=== PATIENT | female | born 1970 | race Caucasian/White ===

== ENCOUNTER 2018-04-08 18:01 | Emergency (ER) | payer MEDICAID ==
[~2018-04-08 18:01] MED LIST: ALBU18HF2 IH; ALBU8HFA PO; NITR100C6 PO
== END 2018-04-08 19:09 | disposition left against medical advice (07) ==
LOC: ER 18:01
DX: L02.91 Cutaneous abscess, unspecified (principal); Z53.21 Procedure and treatment not carried out due to patient leaving prior to being seen by health care provider

== ENCOUNTER 2018-04-08 20:09 | Emergency (ER) | payer MEDICAID ==
[~2018-04-08] VITALS: Ht 157.5 cm; Wt 47.8 kg
[2018-04-08 20:38] VITALS: BP 147/98
--- NOTE | 2018-04-08 20:40 | NUR ---
Pt reports possible placement in rehab facility r/t meth use as a result of an ultimatum from her . Pt is anxious.
--- NOTE | 2018-04-08 22:32 | NUR ---
PATIENT STANDING AT EDGE OF ROOM ASKING TO TALK TO SOMEBODY. I ASKED HER WHAT SHE WANTED HELP WITH AND SHE STATED THAT SHE "IS LEAVING AND IS THERE SOMETHING FOR ME TO SIGN" I TOLD HER THAT THERE WAS AND I WILL GET AN AMA FORM. I TOLD DR WALL WHO ACCOMPANIED ME INTO THE ROOM AND PATIENT BENT OVER AND PULLED HER PANTS DOWN EXPOSING A REDDENED AREA ON HER BUTTOCK. DR ASKED HER TO GET INTO BED AND ROLL AND FACE THE WALL TO EXAMINE HER ABCESS. THE PATIENT REFUSED. DR WALL LEFT THE ROOM THE PATIENT REFUSED TO BE APPROPRIATELY EXAMINED. THE PATIENT THEN REFUSED TO HAVE HER ABCESS DRAINED. SHE DID EXPLAIN THAT WHEN SHE WENT TO THE BATHROOM "STUFF BIG MY PINKIE FINGER CAME OUT"
[2018-04-08] MEDS ORDERED: LIDOcaine 1.5% w/epinephrine 1:200,000 5ml ampul IJ ONE (22:35)
[2018-04-08] MEDS ORDERED: sulfamethoxazole/trimethoprim DS (800/160mg) tablet PO ONE (22:35)
[2018-04-08] MEDS ORDERED: LIDOcaine 1% w/epiNEPHrine 1:200,000 30ml vial IJ ONE (22:55)
== END 2018-04-08 22:39 | disposition left against medical advice (07) ==
LOC: ER 20:10
DX: L02.31 Cutaneous abscess of buttock (principal); J45.909 Unspecified asthma, uncomplicated; F12.90 Cannabis use, unspecified, uncomplicated; F15.90 Other stimulant use, unspecified, uncomplicated; F17.200 Nicotine dependence, unspecified, uncomplicated; Z56.0 Unemployment, unspecified; Z88.0 Allergy status to penicillin; Z88.5 Allergy status to narcotic agent; Z88.8 Allergy status to other drugs, medicaments and biological substances; Z79.899 Other long term (current) drug therapy
CPT/HCPCS: 99281; J3490

== ENCOUNTER 2019-03-22 04:35 | Emergency (ER) | payer MEDICAID ==
[~2019-03-22] VITALS: Ht 157.5 cm; Wt 48.0 kg
[2019-03-22] MEDS ORDERED: ibuprofen tablet 400 MG TABLET PO ONE (05:05)
[2019-03-22] MEDS ORDERED: IBUP-1984 PO (05:06)
[2019-03-22] MEDS ORDERED: CLIN-90 PO (05:06)
[2019-03-22 05:16] VITALS: BP 138/69
== END 2019-03-22 05:19 | disposition home or self-care (01) ==
LOC: ER 04:35
DX: S09.90XA Unspecified injury of head, initial encounter (principal); K02.9 Dental caries, unspecified; R11.2 Nausea with vomiting, unspecified; J45.909 Unspecified asthma, uncomplicated; F17.200 Nicotine dependence, unspecified, uncomplicated; F10.99 Alcohol use, unspecified with unspecified alcohol-induced disorder; F12.90 Cannabis use, unspecified, uncomplicated; F15.90 Other stimulant use, unspecified, uncomplicated; Z56.0 Unemployment, unspecified; Z88.0 Allergy status to penicillin; Z88.5 Allergy status to narcotic agent; Z88.7 Allergy status to serum and vaccine; Z79.899 Other long term (current) drug therapy; Y08.89XA Assault by other specified means, initial encounter; Y93.89 Activity, other specified; Y92.89 Other specified places as the place of occurrence of the external cause; Y99.8 Other external cause status; Y90.9 Presence of alcohol in blood, level not specified
CPT/HCPCS: 99283

== ENCOUNTER 2023-04-17 18:02 | Emergency (ER) | payer MEDICAID ==
[~2023-04-17] VITALS: Ht 157.5 cm; Wt 49.1 kg
[~2023-04-17 18:02] MED LIST changes: +CLIN-97 PO
[2023-04-17 19:13] VITALS: BP 118/70; PULSE 90; RESP 20; TEMP 97.8; O2SAT 99
== END 2023-04-17 19:15 | disposition home or self-care (01) ==
LOC: ER 18:02
DX: R05.9 Cough, unspecified (principal); J45.909 Unspecified asthma, uncomplicated; F12.90 Cannabis use, unspecified, uncomplicated; F15.90 Other stimulant use, unspecified, uncomplicated; Z88.0 Allergy status to penicillin; Z88.5 Allergy status to narcotic agent; Z88.1 Allergy status to other antibiotic agents
CPT/HCPCS: 71045; 99283

== ENCOUNTER 2023-12-17 08:37 | Emergency (ER) | payer MEDICAID ==
[~2023-12-17] VITALS: Ht 157.5 cm; Wt 46.4 kg
[2023-12-17 09:34] LABS: BILIRUBIN,URINE NEGATIVE (Neg); CLARITY,URINE SLIGHTLY CLOUDY (Clear); COLOR,URINE YELLOW (Yellow); GLUCOSE, URINE NEGATIVE (Neg); KETONES,URINE NEGATIVE (Neg); LEUKOCYTE ESTERASE ,URINE NEGATIVE (Neg); NITRITES, URINE NEGATIVE (Neg); OCCULT BLOOD,URINE MODERATE (Neg); PROTEIN,URINE TRACE mg/dl (Neg); UROBILINOGEN,URINE 0.2 E.U/dL (0.2-1.0)
[2023-12-17] MEDS: ipratropium/albuterol 3ml nebule NEB STA (09:36)
[2023-12-17 09:37] VITALS: PULSE 86; RESP 16; O2SAT 96
[2023-12-17 09:37] LABS: UA COLLECTION TYPE CLN CATCH MIDSTREAM
[2023-12-17 09:40] LABS: SQUAMOUS EPITHELIAL CELL,UR MANY /LPF (FEW)
[2023-12-17 09:41] LABS: RBC,URINE 20-50 /HPF (0-2)
[2023-12-17 09:42] LABS: BACTERIA,URINE FEW /HPF (Neg)
[2023-12-17 09:44] VITALS: PULSE 84; RESP 16; O2SAT 96
[2023-12-17 09:50] LABS: ALBUMIN 2.3 G/DL (3.4-5.0); ALBUMIN/GLOBULIN RATIO 0.4 (1.1-1.5); ALKALINE PHOSPHATASE 103 IU/L (46-116); ANION GAP 8 (8-16); ASPARTATE AMINO TRANSFERASE 8 U/L (10-37); BILIRUBIN,TOTAL 0.5 MG/DL (0.1-1.0); BLOOD UREA NITROGEN 11 MG/DL (7-18); BUN/CREATININE RATIO 16.4 (10.0-20.0); CHLORIDE 102 MMOL/L (99-107); CREATININE 0.67 MG/DL (0.40-0.90); GLUCOSE 91 MG/DL (70-104); POTASSIUM 3.6 MMOL/L (3.5-5.1); SODIUM 136 MMOL/L (135-145); TOTAL CARBON DIOXIDE 26.2 MMOL/L (24-32); eCRCL 72 ML/MIN; eGFR > 90 ML/MIN
[2023-12-17 09:51] LABS: ALANINE AMINOTRANSFERASE < 6 U/L (12-78)
[2023-12-17 10:00] LABS: BASOPHILS # (AUTO) 0.1 X10'3 (0-0.2); EOSINOPHILS % (AUTO) 0.2 % (0-6); HEMOGLOBIN 11.5 g/dl (12.0-16.0); LYMPHOCYTES # (AUTO) 1.3 X10'3 (1.1-4.8)
[2023-12-17 10:02] LABS: BASOPHILS % (AUTO) 0.5 % (0-1); HEMATOCRIT 35.6 % (35.0-45.0); LYMPHOCYTES % (AUTO) 7.5 % (21-51); MEAN CORPUSCULAR HEMOGLOBIN 29.1 PG (27.0-31.0); MEAN CORPUSCULAR HGB CONC 32.4 g/dL (33.0-36.5); MEAN CORPUSCULAR VOLUME 89.9 FL (78-98); MEAN PLATELET VOLUME 7.8 FL (7.4-10.4); MONOCYTES # (AUTO) 1.2 X10'3 (0-0.9); NEUTROPHILS # (AUTO) 14.3 X10'3 (1.8-7.7); NEUTROPHILS % (AUTO) 84.8 % (42-75); PLATELET COUNT 766 X10'3 (140-440); RED BLOOD COUNT 3.96 X10'6 (4.20-5.60); RED CELL DISTRIBUTION WIDTH 15.3 % (11.5-14.5); WHITE BLOOD COUNT 16.9 X10'3 (4.5-11.0)
[2023-12-17 10:34] VITALS: BP 112/70; PULSE 82; RESP 16; TEMP 99.9; O2SAT 92
[2023-12-17] MEDS ORDERED: AZIT250T81 PO (15:52)
[2023-12-17] MEDS ORDERED: AZIT-164 PO (15:52)
== END 2023-12-17 11:37 | disposition left against medical advice (07) ==
LOC: ER 08:37
DX: J18.9 Pneumonia, unspecified organism (principal); F12.90 Cannabis use, unspecified, uncomplicated; F17.200 Nicotine dependence, unspecified, uncomplicated; J44.0 Chronic obstructive pulmonary disease with (acute) lower respiratory infection; Z88.0 Allergy status to penicillin; Z88.1 Allergy status to other antibiotic agents; Z88.5 Allergy status to narcotic agent; Z88.7 Allergy status to serum and vaccine; Z20.822 Contact with and (suspected) exposure to COVID-19
CPT/HCPCS: 71045; 80053; 81001; 85025; 87811; 94640; 94760; 99284

== ENCOUNTER 2023-12-18 06:38 | Emergency (ER) | payer MEDICAID ==
[~2023-12-18] VITALS: Ht 157.5 cm; Wt 46.4 kg
[~2023-12-18 06:38] MED LIST changes: +AZIT-164 PO; +AZIT250T81 PO
[2023-12-18 06:43] VITALS: BP 127/73; PULSE 106; RESP 18; TEMP 99; O2SAT 95
== END 2023-12-18 09:57 | disposition left against medical advice (07) ==
LOC: ER 06:38
DX: R10.11 Right upper quadrant pain (principal); R11.2 Nausea with vomiting, unspecified; Z53.21 Procedure and treatment not carried out due to patient leaving prior to being seen by health care provider

== ENCOUNTER 2024-01-01 17:17 | Emergency (ER) | payer MEDICAID ==
[~2024-01-01] VITALS: Ht 157.5 cm; Wt 46.4 kg
[~2024-01-01 17:17] MED LIST changes: -AZIT250T81 PO
[2024-01-01 17:30] VITALS: BP 135/85; PULSE 83; RESP 18; TEMP 98.1; O2SAT 93
== END 2024-01-01 18:10 | disposition left against medical advice (07) ==
LOC: ER 17:18
DX: J18.9 Pneumonia, unspecified organism (principal); J45.909 Unspecified asthma, uncomplicated; F17.210 Nicotine dependence, cigarettes, uncomplicated; F12.90 Cannabis use, unspecified, uncomplicated; F15.90 Other stimulant use, unspecified, uncomplicated; Z88.0 Allergy status to penicillin; Z88.5 Allergy status to narcotic agent; Z79.2 Long term (current) use of antibiotics; Z79.899 Other long term (current) drug therapy; Z88.1 Allergy status to other antibiotic agents

== ENCOUNTER 2024-04-17 07:12 | Inpatient (IN) | payer MEDICAID ==
[~2024-04-17] VITALS: Ht 157.5 cm; Wt 50.5 kg
[~2024-04-17 07:12] MED LIST changes: -AZIT-164 PO
[2024-04-17 07:55] LABS: BILIRUBIN,URINE NEGATIVE (Neg); CLARITY,URINE CLEAR (Clear); COLOR,URINE YELLOW (Yellow); GLUCOSE, URINE NEGATIVE (Neg); KETONES,URINE NEGATIVE (Neg); LEUKOCYTE ESTERASE ,URINE NEGATIVE (Neg); NITRITES, URINE NEGATIVE (Neg); OCCULT BLOOD,URINE MODERATE (Neg); PROTEIN,URINE 30 mg/dl (Neg); URINE AMPHETAMINE SCREEN NEGATIVE (Neg); URINE BARBITUATE SCREEN NEGATIVE (Neg); URINE BENZODIAZEPINES SCREEN NEGATIVE (Neg); URINE CANNABINOID SCREEN NEGATIVE (Neg); URINE COCAINE SCREEN NEGATIVE (Neg); URINE METHADONE SCREEN NEGATIVE (Neg); URINE OPIATE SCREEN NEGATIVE (Neg); URINE PHENCYCLIDINE SCREEN NEGATIVE (Neg); UROBILINOGEN,URINE 0.2 E.U/dL (0.2-1.0)
[2024-04-17 08:03] LABS: BASOPHILS % (AUTO) 0.3 % (0-1); EOSINOPHILS # (AUTO) 0.2 X10'3 (0-0.9); EOSINOPHILS % (AUTO) 1.4 % (0-6); HEMATOCRIT 36.2 % (35.0-45.0); LYMPHOCYTES # (AUTO) 0.8 X10'3 (1.1-4.8); LYMPHOCYTES % (AUTO) 7.3 % (21-51); MEAN CORPUSCULAR HEMOGLOBIN 30.3 PG (27.0-31.0); MEAN CORPUSCULAR HGB CONC 33.2 g/dL (33.0-36.5); MEAN CORPUSCULAR VOLUME 91.1 FL (78-98); MEAN PLATELET VOLUME 8.4 FL (7.4-10.4); MONOCYTES # (AUTO) 0.9 X10'3 (0-0.9); MONOCYTES % (AUTO) 7.5 % (2-12); NEUTROPHILS # (AUTO) 9.6 X10'3 (1.8-7.7); NEUTROPHILS % (AUTO) 83.5 % (42-75); PLATELET COUNT 525 X10'3 (140-440); RED BLOOD COUNT 3.98 X10'6 (4.20-5.60); RED CELL DISTRIBUTION WIDTH 13.9 % (11.5-14.5); WHITE BLOOD COUNT 11.5 X10'3 (4.5-11.0)
[2024-04-17 08:05] LABS: ALANINE AMINOTRANSFERASE 19 U/L (12-78); ALBUMIN/GLOBULIN RATIO 0.6 (1.1-1.5); ALKALINE PHOSPHATASE 83 IU/L (46-116); ANION GAP 7 (8-16); ASPARTATE AMINO TRANSFERASE 20 U/L (10-37); BILIRUBIN,TOTAL 0.2 MG/DL (0.1-1.0); BLOOD UREA NITROGEN 15 MG/DL (7-18); BUN/CREATININE RATIO 21.7 (10.0-20.0); CALCIUM 8.6 MG/DL (8.5-10.1); CHLORIDE 103 MMOL/L (99-107); CREATININE 0.69 MG/DL (0.40-0.90); GLUCOSE 111 MG/DL (70-104); POTASSIUM 4.1 MMOL/L (3.5-5.1); SODIUM 139 MMOL/L (135-145); TOTAL CARBON DIOXIDE 28.8 MMOL/L (24-32); TOTAL PROTEIN 8.1 G/DL (6.4-8.2); eCRCL 75 ML/MIN; eGFR 89 ML/MIN
[2024-04-17] MEDS ORDERED: iohexol 300mg/ml 100ml inj. ONE (08:05)
[2024-04-17 08:07] LABS: UA COLLECTION TYPE CLN CATCH MIDSTREAM
[2024-04-17 08:09] LABS: BACTERIA,URINE FEW /HPF (Neg)
[2024-04-17 08:10] LABS: FINE GRANULAR CAST 0-3 /LPF (NEGATIVE); MUCUS STRANDS FEW /LPF (Neg); SQUAMOUS EPITHELIAL CELL,UR FEW /LPF (FEW); WBC CLUMPS,URINE FEW /HPF (NEGATIVE)
[2024-04-17] MEDS: diphenhydrAMINE 50 mg/ml inj IV ONE (09:03)
[2024-04-17] MEDS: nicotine 7mg patch - 24hr TD ONE (12:13)
[2024-04-17] MEDS ORDERED: IBUP-1985 PO (12:35)
[2024-04-17] MEDS ORDERED: ALBU18HF2 INH (12:38)
[2024-04-17] MEDS: PERFLUTREN PROTEIN-A MICROSPHR (Optison) 0.22 MG/ML 3ML VIAL IV ONE (13:20)
[2024-04-17] MEDS ORDERED: magnesium sulf-water 4G/100mL 100 ML IV PRN (13:25)
[2024-04-17] MEDS ORDERED: magnesium Cl slow-release 64mg tablet PO PRN (13:25)
[2024-04-17] MEDS ORDERED: ondansetron/PF 4mg/2ml inj IV PRN (13:25)
[2024-04-17] MEDS ORDERED: potassium Cl 20 mEq SR tablet PO PRN ×2 (13:25)
[2024-04-17] MEDS ORDERED: magnesium sulf-water 2g/50mL 50 ML IV PRN (13:25)
[2024-04-17] MEDS ORDERED: potassium Cl 40MEQ/1/2NS 520ml 520 ML IV PRN (13:25)
[2024-04-17 13:27] VITALS: RESP 18; O2SAT 97
[2024-04-17] MEDS: ringers solution, lacted 1,000 ML IV SCH (13:36)
[2024-04-17 14:06] LABS: HEMOGLOBIN A1C 5.7 % (4.5-6.2)
[2024-04-17] MEDS: ketorolac trometh 15mg/ml vial 15 MG/ML ML IV PRN (15:17)
[2024-04-17 18:00] VITALS: BP 100/61; PULSE 68; RESP 12; TEMP 98.4; O2SAT 95
[2024-04-17 18:57] VITALS: PULSE 71; RESP 18; O2SAT 93
[2024-04-17] MEDS: ipratropium/albuterol 3ml nebule NEB PRN (18:57)
[2024-04-17 19:03] VITALS: PULSE 77; RESP 18
[2024-04-17] MEDS: heparin, porcine 5000 units/ml vial SQ SCH (20:00)
[2024-04-17] MEDS: K and/or MAG REPLACEMENT MC SCH (20:00)
[2024-04-17] MEDS: nicotine 7mg patch - 24hr TD SCH (20:38)
[2024-04-17 22:00] VITALS: BP 95/48; PULSE 68; RESP 14; TEMP 98.4; O2SAT 95
[2024-04-18 05:58] LABS: BASOPHILS # (AUTO) 0.1 X10'3 (0-0.2); BASOPHILS % (AUTO) 0.9 % (0-1); EOSINOPHILS # (AUTO) 0.3 X10'3 (0-0.9); EOSINOPHILS % (AUTO) 4.2 % (0-6); HEMATOCRIT 34.3 % (35.0-45.0); HEMOGLOBIN 11.5 g/dl (12.0-16.0); LYMPHOCYTES # (AUTO) 2.2 X10'3 (1.1-4.8); MEAN CORPUSCULAR HEMOGLOBIN 30.4 PG (27.0-31.0); MEAN CORPUSCULAR HGB CONC 33.4 g/dL (33.0-36.5); MEAN CORPUSCULAR VOLUME 90.8 FL (78-98); MEAN PLATELET VOLUME 8.4 FL (7.4-10.4); MONOCYTES # (AUTO) 0.5 X10'3 (0-0.9); MONOCYTES % (AUTO) 7.7 % (2-12); NEUTROPHILS # (AUTO) 3.7 X10'3 (1.8-7.7); NEUTROPHILS % (AUTO) 54.2 % (42-75); PLATELET COUNT 427 X10'3 (140-440); RED BLOOD COUNT 3.78 X10'6 (4.20-5.60); WHITE BLOOD COUNT 6.8 X10'3 (4.5-11.0)
[2024-04-18 06:00] VITALS: BP 119/73; PULSE 69; RESP 13; TEMP 98.5; O2SAT 96
[2024-04-18 06:24] LABS: ALANINE AMINOTRANSFERASE 15 U/L (12-78); ALBUMIN 2.5 G/DL (3.4-5.0); ALBUMIN/GLOBULIN RATIO 0.5 (1.1-1.5); ALKALINE PHOSPHATASE 75 IU/L (46-116); ANION GAP 4 (8-16); ASPARTATE AMINO TRANSFERASE 14 U/L (10-37); BILIRUBIN,TOTAL 0.2 MG/DL (0.1-1.0); BLOOD UREA NITROGEN 17 MG/DL (7-18); BUN/CREATININE RATIO 26.2 (10.0-20.0); CALCIUM 8.6 MG/DL (8.5-10.1); CHLORIDE 104 MMOL/L (99-107); CHOL/HDL RATIO 3.6 (0.00-4.99); CHOLESTEROL 118 MG/DL (0-200); CREATININE 0.65 MG/DL (0.40-0.90); GLUCOSE 91 MG/DL (70-104); HDL CHOLESTEROL 33 MG/DL (35-60); LDL CHOLESTEROL 66 MG/DL (50-100); MAGNESIUM 2.3 MG/DL (1.5-2.4); PHOSPHORUS 3.8 MG/DL (2.3-4.5); POTASSIUM 4.4 MMOL/L (3.5-5.1); SODIUM 139 MMOL/L (135-145); TOTAL CARBON DIOXIDE 30.8 MMOL/L (24-32); TOTAL PROTEIN 7.2 G/DL (6.4-8.2); TRIGLYCERIDES 100 MG/DL (20-135); eCRCL 80 ML/MIN; eGFR > 90 ML/MIN
[2024-04-18] MEDS: nicotine 14mg patch - 24hr TD SCH (08:01)
[2024-04-18 10:00] VITALS: BP 115/57; PULSE 68; RESP 14; TEMP 97.9; O2SAT 92
[2024-04-18] MEDS: cefepime 1GM/NS ADD-VANTAGE 100 ML IV SCH (11:48)
[2024-04-18] MEDS: ketorolac trometh 15mg/ml vial 15 MG/ML ML IV SCH (17:10)
[2024-04-18 18:00] VITALS: BP 117/72; PULSE 71; RESP 18; TEMP 98.2; O2SAT 95
[2024-04-18] MEDS: guaiFENesin ER 600mg tablet PO SCH (20:41)
[2024-04-18 22:00] VITALS: BP 113/49; PULSE 65; RESP 12; TEMP 97.8; O2SAT 93
[2024-04-19 03:09] VITALS: BP 117/72; PULSE 71; RESP 18; TEMP 98.2; O2SAT 95
[2024-04-19 05:58] LABS: BASOPHILS # (AUTO) 0.1 X10'3 (0-0.2); BASOPHILS % (AUTO) 1.1 % (0-1); EOSINOPHILS # (AUTO) 0.4 X10'3 (0-0.9); EOSINOPHILS % (AUTO) 4.7 % (0-6); HEMATOCRIT 34.7 % (35.0-45.0); HEMOGLOBIN 11.3 g/dl (12.0-16.0); LYMPHOCYTES # (AUTO) 1.9 X10'3 (1.1-4.8); LYMPHOCYTES % (AUTO) 20.8 % (21-51); MEAN CORPUSCULAR HEMOGLOBIN 29.7 PG (27.0-31.0); MEAN CORPUSCULAR HGB CONC 32.7 g/dL (33.0-36.5); MEAN CORPUSCULAR VOLUME 90.7 FL (78-98); MEAN PLATELET VOLUME 8.9 FL (7.4-10.4); MONOCYTES # (AUTO) 0.8 X10'3 (0-0.9); MONOCYTES % (AUTO) 8.6 % (2-12); NEUTROPHILS # (AUTO) 5.8 X10'3 (1.8-7.7); NEUTROPHILS % (AUTO) 64.8 % (42-75); PLATELET COUNT 499 X10'3 (140-440); RED BLOOD COUNT 3.82 X10'6 (4.20-5.60); RED CELL DISTRIBUTION WIDTH 13.8 % (11.5-14.5); WHITE BLOOD COUNT 8.9 X10'3 (4.5-11.0)
[2024-04-19 06:00] VITALS: BP 120/61; PULSE 60; RESP 14; TEMP 97.6
[2024-04-19] MEDS ORDERED: cefepime 1GM in D5W 50mL 100 ML IV SCH (06:11)
[2024-04-19 06:21] LABS: ALANINE AMINOTRANSFERASE 16 U/L (12-78); ALBUMIN 2.7 G/DL (3.4-5.0); ALBUMIN/GLOBULIN RATIO 0.6 (1.1-1.5); ALKALINE PHOSPHATASE 82 IU/L (46-116); ANION GAP 3 (8-16); ASPARTATE AMINO TRANSFERASE 12 U/L (10-37); BILIRUBIN,TOTAL 0.1 MG/DL (0.1-1.0); BLOOD UREA NITROGEN 16 MG/DL (7-18); BUN/CREATININE RATIO 24.2 (10.0-20.0); CALCIUM 9.9 MG/DL (8.5-10.1); CHLORIDE 104 MMOL/L (99-107); CREATININE 0.66 MG/DL (0.40-0.90); GLUCOSE 103 MG/DL (70-104); MAGNESIUM 1.9 MG/DL (1.5-2.4); PHOSPHORUS 4.6 MG/DL (2.3-4.5); POTASSIUM 4.9 MMOL/L (3.5-5.1); SODIUM 142 MMOL/L (135-145); TOTAL CARBON DIOXIDE 35.2 MMOL/L (24-32); TOTAL PROTEIN 7.2 G/DL (6.4-8.2); eCRCL 79 ML/MIN; eGFR > 90 ML/MIN
[2024-04-19 08:00] VITALS: RESP 18; O2SAT 95
[2024-04-19] MEDS: polyethylene glycol 3350 17gm powd pack PO SCH (08:48)
[2024-04-19] MEDS: cefepime 1GM in D5W 50mL 50 ML IV SCH (08:55)
[2024-04-19 10:00] VITALS: BP 108/63; PULSE 62; RESP 17; TEMP 98; O2SAT 93
[2024-04-19] MEDS ORDERED: AMOX-580 PO (13:53)
[2024-04-19] MEDS ORDERED: LACT1CAP26 PO (13:53)
[2024-04-20] MEDS ORDERED: pantoprazole 40mg Tablet.DR PO SCH (07:30)
== END 2024-04-19 14:35 | disposition home or self-care (01) | DRG 463 ==
LOC: ER 07:13 → ED HOLD 10:41 → SUR 3N 12:53
PROVIDERS: ADMIT Family Medicine; ATTEND Family Medicine
PROC: BW211ZZ Computerized Tomography (CT Scan) of Abdomen and Pelvis using Low Osmolar Contrast (ICD-10-PCS; principal; 2024-04-17)
DX: N12 Tubulo-interstitial nephritis, not specified as acute or chronic (principal); F19.10 Other psychoactive substance abuse, uncomplicated; J45.909 Unspecified asthma, uncomplicated; J44.9 Chronic obstructive pulmonary disease, unspecified; K82.8 Other specified diseases of gallbladder; Z88.0 Allergy status to penicillin; Z88.5 Allergy status to narcotic agent; Z88.8 Allergy status to other drugs, medicaments and biological substances; Z87.891 Personal history of nicotine dependence; Z91.041 Radiographic dye allergy status
CPT/HCPCS: 36415; 74178; 74181; 76700; 80053; 80061; 80305; 81001; 83036; 83605; 83735; 84100; 84145; 85025; 87081; 87088; 93306; 94640; 94760; 99285; G0378; J0692; J1200; J1644; J1885; J7120; Q9967

== ENCOUNTER 2025-01-25 08:56 | Emergency (ER) | payer MEDICAID ==
[~2025-01-25] VITALS: Ht 157.5 cm; Wt 45.6 kg
[~2025-01-25 08:56] MED LIST changes: -ALBU18HF2 IH; +ALBU18HF2 INH; -CLIN-97 PO; +IBUP600T52 PO; +LACT1CAP26 PO; -NITR100C6 PO
[2025-01-25 09:02] VITALS: PULSE 80; TEMP 97.1; O2SAT 96
[2025-01-25 09:38] LABS: URINE HCG NEGATIVE (NEG)
[2025-01-25 09:41] LABS: LEUKOCYTE ESTERASE ,URINE NEGATIVE (Neg); NITRITES, URINE NEGATIVE (Neg); OCCULT BLOOD,URINE SMALL (Neg)
[2025-01-25 09:50] LABS: UA COLLECTION TYPE CLN CATCH MIDSTREAM
[2025-01-25 09:56] LABS: MUCUS STRANDS NONE SEEN /LPF (Neg); SQUAMOUS EPITHELIAL CELL,UR NONE SEEN /LPF (FEW)
[2025-01-25] MEDS ORDERED: ipratropium/albuterol 3ml nebule NEB PRN (10:00)
--- NOTE | 2025-01-25 10:04 | RADIOLOGY REPORT ---
Procedure: DI CHEST,SINGLE VIEW History: sob Comparison: DI CHEST,SINGLE VIEW on DOS: 12/17/23, DI CHEST,SINGLE VIEW on DOS: 04/17/23 Technique: Single view of the chest. Findings: The lung parenchyma is clear. Hyperinflated lungs with diaphragmatic flattening. No large pleural effusion. Cardiomediastinal silhouette is normal. Impression: 1. No acute cardiopulmonary disease.
[2025-01-25 10:05] LABS: MEAN PLATELET VOLUME 7.3 FL (7.4-10.4); RED CELL DISTRIBUTION WIDTH 16.0 % (11.5-14.5)
[2025-01-25 10:12] VITALS: RESP 18
--- NOTE | 2025-01-25 10:17 | Physician Documentation ---
History of Present Illness Chief Complaint: Abdominal Pain w/vomiting Stated Complaint: MULTIPLE MED COMPLAINTS Time Seen by MD: 09:13 Primary Medical Doctor: PATY Aldana MEDICAL HPI 54 years old female with history of COPD and methamphetamine abuse presented to the ED due to not feeling good. Patient reported was on the [facility] program however recently she quit and started Patient was consulted regarding the adverse effect of his smoking including cardiovascular disease cancer respiratory disease and other patient potential harms methamphetamine and marijuana. Patient denied any IV drug use. She reported generally she does not feel good and recently due to skin infection and possible UTI is taking antibiotic. As record in the EMR it was metronidazole.. She reported also mild abdominal pain and pointed on the small area on the left side of abdomen, not related to the bowel movement or eating. Patient had normal bowel movement. Also reported urinary frequency/urgency recently. Denied any fever or chills shortness of breaths chest pain however she reported also wheezing recently. Patient is anxious and thought she had severe infection all of her body, she showed me multiple dry scar in her extremity and is thinking there are some infection beneath stat. Medication Reconciliation Allergies: Coded Allergies: Iodinated Contrast Media (Verified Allergy, Unknown, RASH TO NECK, 01/25/25) Penicillins (Verified Allergy, Unknown, 01/25/25) Tetanus Vaccines and Toxoid (Unverified Allergy, Unknown, 01/25/25) acetaminophen (Unverified Allergy, Unknown, 01/25/25) codeine (Unverified Allergy, Unknown, 01/25/25) fluoxetine (Unverified Allergy, Unknown, SKIN AND VOMIT ISSUES, 01/25/25) hydrocodone (Unverified Allergy, Unknown, 01/01/24) levofloxacin (Verified Allergy, Unknown, 01/01/24) sertraline (Unverified Allergy, Unknown, SKIN AND VOMIT, 01/01/24) Scheduled Ibuprofen (Ibuprofen), 1 TAB PO Q8H, (Reported) Lactobacillus Rhamnosus (Culturelle), 1 CAP PO DAILY Sulfamethoxazole/Trimethoprim (Bactrim Ds Tablet), 1 EACH PO BID albuterol inhaler (Pro-Air Inhaler), 1-2 PUFFS PO [id number] Scheduled PRN Albuterol Sulfate (Ventolin Hfa), 2 PUFFS INH Q4HPRN PRN for wheezing, (Reported) Past Medical History Past Medical History: Asthma, COPD Past Surgical History: no surgical history Alcohol Use: Occasionally Drug Use: marijuana, methamphetamine Lives In: Home Occupation: unemployed Review of Systems ROS The history of present illness included a review of system, which yielded relevant positives and negatives Physical Exam Vital Signs: Temperature: 97.1, Source: Temporal, Heart Rate: 80, Respiratory Rate: 16, Pulse Oximetry: 96, Weight: 45.600 Oxygen Flow Rate: 0 Physical Exam General: Awake and Alert, no acute distress. HEENT: Conjunctiva pink, Sclera clear, Mucus Membranes moist. Neck: Supple without masses and tenderness. Resp: Scattered mild wheezing Heart: Regular Rate and rhythm, normal S1 and S2 Abdomen: Soft and non tender Extremities: Right upper extremity 3-4 small erythematous pustule Skin: Warm and Dry. Neurological: Speech is clear, alert, and oriented x 4, no gross neurological deficits Progress Progress Note The patient was seen with the resident physician I have evaluated the patient I have reviewed the resident's note and has been active in all aspects with the patient's care. I have supervised all aspects of the patient's care I have reviewed the note and agree with the note as written and I agree The patient has a three complaints one is abdominal pain which is fairly benign she has a nontender abdomen she also has some MRSA healing wounds to the right arm and she also complains of a cough. Given the fact that she has got MRSA wounds and a cough she will be placed on Bactrim and discharged. Previous hospitalizations has been reviewed the patient's pulse oximetry was interpreted as normal and adequate Results/Orders Results/Orders Orders - DINA PENA RES Chest,Single View (01/25/25 09:49) Drug Screen, Urine (01/25/25 09:57) Ipratropium/Albuterol Nebule (Ipratrop/A (01/25/25 10:00) Completed Orders - DINA PENA RES Chest,Single View (01/25/25 09:49) Vital Signs 01/25/25 09:02 Temp 97.1 Pulse 80 Resp 16 Pulse Ox 96 O2 Flow Rate 0 Laboratory Tests Test 01/25/25 09:09 11 09:57 Urine Specimen Description Cln catch midstream Urine Color Yellow Urine Clarity Clear Urine pH 6.0 Urine Specific [place] <=1.005 Urine Protein Negative Urine Glucose (UA) Negative Urine Ketones Negative Urine Occult Blood Small Urine Nitrite Negative Urine Bilirubin Negative Urine Urobilinogen 0.2 Urine Leukocyte Esterase Negative Urine RBC 10-20 Urine WBC 0-4 Urine Squamous Epithelial Cells None seen Urine Bacteria Few Urine Mucus None seen Urine Culture Indicated Not ind Volume Urine Centrifuged 10 ml Urine HCG, Qualitative Negative Urine Comment White Blood Count 6.6 Red Blood Count 4.87 Hemoglobin 14.2 Hematocrit 42.2 Mean Corpuscular Volume 86.6 Mean Corpuscular Hemoglobin 29.1 Mean Corpuscular Hemoglobin Concent 33.5 Red Cell Distribution Width 16.0 H Platelet Count 400 Mean Platelet Volume 7.3 L Neutrophils (%) (Auto) 63.6 Lymphocytes (%) (Auto) 20.6 L Monocytes (%) (Auto) 11.0 Eosinophils (%) (Auto) 4.2 Basophils (%) (Auto) 0.6 Neutrophils # (Auto) 4.2 Lymphocytes # (Auto) 1.4 Monocytes # (Auto) 0.7 Eosinophils # (Auto) 0.3 Basophils # (Auto) 0.0 CBC Comment Chemistry Comments EKG/XRAY/CT/US/VASC/MRI Chest X-Ray : Additional Comments Procedure: DI CHEST,SINGLE VIEW History: sob Comparison: DI CHEST,SINGLE VIEW on DOS: 12/17/23, DI CHEST,SINGLE VIEW on DOS: 04/17/23 Technique: Single view of the chest. Findings: The lung parenchyma is clear. Hyperinflated lungs with diaphragmatic flattening. No large pleural effusion. Cardiomediastinal silhouette is normal. Impression: 1. No acute cardiopulmonary disease. Medical Decision Making Additional information obtaine: old records Findings 54 years old female with history of COPD methamphetamine presented to do not feeling good, she reported mild abdominal pain in frequency/urinary urgency and multiple small skin infection, Differential diagnosis included but not limited to cellulitis, UTI, pneumonia, COPD exacerbation Differential Dx:Considerations: N/A Departure Disposition: 01 HOME / SELF CARE / HOMELESS Impression: Primary Impression: Cough Additional Impression: Cellulitis Condition: Stable Additional Instructions: Labs and imaging is reassuring Possibly you have cellulitis, please complete a course of antibiotic, strongly recommended to avoid methamphetamine and marijuana. Please follow-up with your primary care doctor return to the ED if your symptoms getting worse Referrals: NO PRIMARY CARE PROVIDER (PCP) Prescriptions Sulfamethoxazole/Trimethoprim (Bactrim Ds Tablet) 800 Mg-160 Mg Tablet 1 EACH PO BID for 10 Days, #20 TAB Prov: DINA PENA, RES 01/25/25 Education Educated: Patient Signature Scribe Signature: no scribe Attestation: The resident MD attestation: I examined the patient and discussed the plan with attending physician DINA Cadena, RES Jan 25, 2025 10:17 NAE BATRES MD Jan 25, 2025 10:35
[2025-01-25 10:22] LABS: CREATININE 0.95 MG/DL (0.40-0.90); ETHANOL < 10 MG/DL (<10); TOTAL CARBON DIOXIDE 30.2 MMOL/L (24-32); eCRCL 49 ML/MIN; eGFR 62 ML/MIN
[2025-01-25] MEDS ORDERED: sulfamethoxazole/trimethoprim DS (800/160mg) tablet PO ONE (10:55)
[2025-01-25] MEDS ORDERED: SULF1TAB49 PO (11:06)
== END 2025-01-25 11:15 | disposition home or self-care (01) ==
LOC: ER 08:57
DX: L03.311 Cellulitis of abdominal wall (principal); R05.9 Cough, unspecified; J44.9 Chronic obstructive pulmonary disease, unspecified; F12.90 Cannabis use, unspecified, uncomplicated; F15.90 Other stimulant use, unspecified, uncomplicated; Z56.0 Unemployment, unspecified; Z72.89 Other problems related to lifestyle; Z88.0 Allergy status to penicillin; Z88.7 Allergy status to serum and vaccine; Z88.5 Allergy status to narcotic agent; Z88.1 Allergy status to other antibiotic agents; Z88.6 Allergy status to analgesic agent; Z91.041 Radiographic dye allergy status; Z79.899 Other long term (current) drug therapy
CPT/HCPCS: 36415; 71045; 80053; 80320; 81001; 81025; 83690; 85025; 99284